=== PATIENT | female | born 1965 | race Caucasian/White ===

== ENCOUNTER → 2017-02-05 | Outpatient (CLI) | payer OTHER | LOC: FIMAGING 11:23 | PROVIDERS: ATTEND Obstetrics & Gynecology | DX: Z12.31 Encounter for screening mammogram for malignant neoplasm of breast (principal) | CPT/HCPCS: G0202 ==

== ENCOUNTER → 2018-02-26 | Outpatient (CLI) | payer OTHER | LOC: FIMAGING 11:59 | PROVIDERS: ATTEND Obstetrics & Gynecology | DX: Z12.31 Encounter for screening mammogram for malignant neoplasm of breast (principal) ==

== ENCOUNTER 2018-06-16 13:11 | Emergency (ER) | payer OTHER ==
--- NOTE | 2018-06-16 14:43 | EDPHY ---
General Time Seen by Provider: 06/16/18 14:43 Narrative: CLINICAL IMPRESSION: Headache, nausea. ASSESSMENT/PLAN: Patient is a 52 year old female with a history of seizure disorder who presents to the Emergency Department with sudden-onset posterior headache. Patient is afebrile and nontoxic appearing, mild distress on arrival. Her neurological exam is grossly normal with no focal deficit, NIH 0, negative test of skew and no gait or truncal ataxia. CT head, CTA head and neck all negative for acute intracranial process, aneurysm, hemorrhage or dissection. CBC revealed no evidence of leukocytosis or anemia, BMP grossly unremarkable. I considered the other potentially dangerous causes including meningitis, encephalitis, CVA/TIA and vertebral dissection however low clinical suspicion. I specifically considered a subarachnoid hemorrhage as possible etiology in light of sudden- onset headache however symptoms are less than 6 hr, CT/CTA head and neck were negative- I have low clinical suspicion at this time. Discussed LP with patient however she refuses and would prefer conservative management and follow up with her neurologist. There are no associated cranial nerve abnormalities and the patient has marked improvement with IV fluids, reglan, benadryl and toradol. Plan is to continue to treat the patient symptomatically and follow up with PCP after an outpatient trial. No indication for admission at this time. On re-examination and prior to discharge the patient's headache has markedly improved- near gone, she denies further nausea and her neurological examination is grossly normal. We discussed the importance of follow-up, she will schedule an appointment with her neurologist; patient does not have a PCP, she was provided a referral. Strict return precautions discussed- she will return immediately for worsening pain, visual changes, mental status changes, fever, vomiting or any other concerns. Patient verbalizes understanding and she is in agreement with this plan. DIFFERENTIAL DX: Headache including but not limited to subarachnoid hemorrhage, migraine headache , tension headache and infectious causes such as meningitis, pharyngitis and sinusitis. ED COURSE: 1500: Case discussed with Dr. Ceballos 1600: CT head and CTA head and neck negative for acute abnormality. On repeat examination the patient's neurological exam remained grossly normal with no focal deficit. Discussed LP for further evaluation of headache however patient refusing at this time. She prefers conservative management with pain control and follow up with her neurologist. 1648: On repeat exam the patient reports she is feeling so much better, feels ready to be discharged home. Her neurological exam remained grossly normal with no focal deficit. CHIEF COMPLAINT: Headache, dizzy, nausea HPI: Patient is a 52-year-old female who presents to the Emergency Department with sudden-onset posterior headache with brief period of lightheadedness and intermittent nausea. Patient reports that noon today she had a sudden onset headache located in the back of her head, radiates down her occiput. She has never experienced headaches like this before. At the time her headache came on , she felt like she saw black however denies any vision loss or loss of consciousness. Patient reports a very brief feeling of dizziness, resolved and has not recurred. She has had intermittent nausea since her headache started, her headache has been constant. She has not taken anything for pain. She has no history of migraines. Patient denies any fevers, chills, neck stiffness, recent URI, chest pain, shortness of breath or abdominal pain. She has had no vision changes, numbness or tingling of extremities, focal weakness or ataxia. Patient endorses last seizure approximately 2 and half years ago, no recent changes in medications. She saw her neurologist Dr. Rey several months ago with no concerns. PMH: Seizure disorder Family History: Denies Social History: Denies smoking or illicit drug use REVIEW OF SYSTEMS: All other systems negative Constitutional: No fever, no chills, appetite change. Eyes: No discharge, vision change ENT: No sore throat, congestion, ear pain. Cardiovascular: No chest pain, no palpitations. Respiratory: No cough, no shortness of breath. Gastrointestinal: Nausea. No abdominal pain, no vomiting, diarrhea. Genitourinary: No hematuria, dysuria, flank pain, pelvic pain Musculoskeletal: No back pain, joint swelling, joint pain, myalgias. Skin: No rashes, color change. Neurological: Headache, dizziness. PHYSICAL EXAM: General Appearance: Patient is well-developed, mildly uncomfortable appearing however not toxic-appearing. HENT: Normocephalic, atraumatic. Bilateral external ears are normal. Bilateral tympanic membranes are normal with pearly quigley reflex. Nares are clear, mucosa is pink. Oropharynx is clear, uvula is midline. There is no tonsillar enlargement or exudate. The dentition is normal. Eyes: PERRLA, EOMI intact. No acute vision change, no swelling, discharge, pain or photosensitivity. Conjunctiva pink, no pallor or injection Neck: Supple, nontender, no lymphadenopathy, no midline pain, FROM, no meningismus- negative Kernig, negative Brudzinski. Respiratory: There are no retractions, lungs are clear to auscultation. Cardiac: Regular rate and rhythm, no murmurs or gallops. Gastrointestinal: Abdomen is soft, nontender, bowel sounds normal, no masses/ hernia, no rigidity, guarding or focal peritoneal findings. Neurological: MENTAL STATUS: Patient is alert and oriented to person, place, time, and situation. Recent and remote memory are intact. Attention and concentration are normal. Found knowledge is appropriate to level of education. Mood and affect normal. SPEECH: Language including naming, repetition, comprehension, and spontaneous speech are normal. No dysarthria or dysphagia. CRANIAL NERVES: II: Visual fong are full to confrontation. Vision is grossly intact. III, IV, : Pupils are equal, round, reactive to light. Extraocular eye movements are full and without nystagmus. V: Facial sensation is intact to touch symmetrically in all 3 divisions. VII: Face is symmetric at rest with no asymmetry of grimace or evidence of facial weakness. VIII: Hearing is intact bilaterally to finger rub. IX, X: Palate is midline and elevates symmetrically with intact cough/gag. XI: Sternocleidomastoid and trapezius strength is normal. XII: Tongue protrudes midline without atrophy or fasciculations. MOTOR: Normal bulk and tone symmetrically in the upper and lower extremities. Upper extremities: shoulder abduction, elbow flexion, elbow extension, flexion of fingers and finger abduction strength 5/5 bilaterally. Lower extremities: hip flexion, knee flexion and extension, plantar and dorsiflexion of foot, and great toe extension strength 5/5 bilaterally. No pronator drift. SENSORY: Sensation is intact to light touch and symmetric in the UE's in LE's bilaterally. Romberg is negative. COORDINATION: Fine motor and rapid alternating movements are normal. Finger to nose is normal bilaterally. [id number] is normal bilaterally. No abnormal movements noted. There is no tremor at rest or with posture or action. GAIT/STATION: Casual, straightforward gait is normal. Patient can walk on toes and on heels. NIH is 0, negative test of skew, no truncal or gait ataxia. Skin: Warm, dry, no rashes, no nodules on palpation. Musculoskeletal: Extremities are symmetrical, full range of motion, no tenderness, deformity, swelling, or erythema. Psychiatric: Patient is oriented X 3, there is no agitation. MEDICAL DECISION MAKING: Patient was seen independently. Secondary supervising physician at time of evaluation was Dr. Ceballos, he did not evaluate this patient however case, results and plan of care were reviewed with him. Diagnosis: Headache, nausea. New, requires workup Summary: See Assessment and Plan for summary of ED visit Clinical lab tests: ordered / reviewed. Independent visualization of images, tracing, or specimens: Yes. Decision to obtain medical records or history from someone other than the patient: No Review / Summarize previous medical records: No Discussed patient with another provider: Yes, Dr. Ceballos Patient Progress: Stable, discharge. - Diagnostics Imaging Results: Imaging Impressions Head CT 06/16/18 15:06 Impression: Normal. Findings and recommendations discussed with KRISTOPHER Ramos at 3:52 PM hour, 06/16/2018. Final report concurs with initial preliminary interpretation. Head CTA 06/16/18 15:06 Impression: Normal. Findings and recommendations discussed with KRISTOPHER Ramos at 3:51 PM hour, 06/16/2018. Final report concurs with initial preliminary interpretation. Neck CTA 06/16/18 15:06 Impression: Normal. Note: All stenoses are calculated using NASCET Criteria. Findings and recommendations discussed with KRISTOPHER Ramos at 3:55 PM hour, 06/16/2018. Final report concurs with initial preliminary interpretation. - History Smoking Status: Never smoked - Objective Vital Signs: Initial Vital Signs Temperature (C) 36.6 C 06/16/18 13:16 Heart Rate 72 06/16/18 13:16 Respiratory Rate 18 06/16/18 13:16 Blood Pressure 148/98 H 06/16/18 13:16 O2 Sat (%) 98 06/16/18 13:16 O2 Delivery Mode Room Air Allergies/Adverse Reactions: divalproex sodium [From Depakote] Allergy (Verified 06/16/18 13:15) phenytoin [From Dilantin] Allergy (Verified 06/16/18 13:16) Home Medications: Medication Instructions Recorded Zonegran 06/16/18 Laboratory Results: Laboratory Results 06/16/18 13:50 06/16/18 13:50 06/16/18 06/16/18 06/16/18 15:11 13:50 13:50 WBC 7.35 10^3/uL 10^3/uL (3.80-9.50) RBC 4.50 10^6/uL 10^6/uL (4.18-5.33) Hgb 14.1 g/dL g/dL (12.6-16.3) POC Hgb 15.0 gm/dL gm/dL (12.6-16.3) Hct 43.2 % % (38.0-47.0) POC Hct 44 % % (38-47) MCV 96.0 fL fL (81.5-99.8) MCH 31.3 pg pg (27.9-34.1) MCHC 32.6 g/dL g/dL (32.4-36.7) RDW 12.8 % % (11.5-15.2) Plt Count 197 10^3/uL 10^3/uL (150-400) MPV 11.9 fL H fL (8.7-11.7) Neut % (Auto) 58.6 % % (39.3-74.2) Lymph % (Auto) 29.9 % % (15.0-45.0) Darke % (Auto) 10.1 % % (4.5-13.0) Eos % (Auto) 0.5 % L % (0.6-7.6) Baso % (Auto) 0.4 % % (0.3-1.7) Nucleat RBC Rel Count 0.0 % % (0.0-0.2) Absolute Neuts (auto) 4.30 10^3/uL 10^3/uL (1.70-6.50) Absolute Lymphs (auto) 2.20 10^3/uL 10^3/uL (1.00-3.00) Absolute Monos (auto) 0.74 10^3/uL 10^3/uL (0.30-0.80) Absolute Eos (auto) 0.04 10^3/uL 10^3/uL (0.03-0.40) Absolute Basos (auto) 0.03 10^3/uL 10^3/uL (0.02-0.10) Absolute Nucleated RBC 0.00 10^3/uL 10^3/uL (0-0.01) Immature Gran % 0.5 % % (0.0-1.1) Immature Gran # 0.04 10^3/uL 10^3/uL (0.00-0.10) POC Sodium 143 mEq/L mEq/L (135-145) Sodium 139 mEq/L mEq/L (135-145) POC Potassium 4.2 mEq/L mEq/L (3.3-5.0) Potassium 4.3 mEq/L mEq/L (3.5-5.2) POC Chloride 107 mEq/L mEq/L (97-110) Chloride 110 mEq/L mEq/L (97-110) Carbon Dioxide 21 mEq/l L mEq/l (22-31) Anion Gap 8 mEq/L mEq/L (6-14) POC BUN 15 mg/dL mg/dL (7-23) BUN 15 mg/dL mg/dL (7-23) Creatinine 0.9 mg/dL mg/dL (0.6-1.0) POC Creatinine 0.8 mg/dL mg/dL (0.6-1.0) Estimated GFR > 60 Glucose 96 mg/dL mg/dL (70-100) POC Glucose 90 mg/dL mg/dL (70-100) Calcium 9.6 mg/dL mg/dL (8.5-10.4) Medications Given: Discontinued Medications Diphenhydramine HCl (Benadryl Injection) 25 mg IVP EDNOW ONE Stop: 06/16/18 16:03 Last Admin: 06/16/18 16:16 Dose: 25 mg Hydromorphone HCl (Dilaudid) 0.5 mg IVP EDNOW ONE Stop: 06/16/18 15:08 Last Admin: 06/16/18 15:12 Dose: 0.5 mg Sodium Chloride (Ns) 1,000 mls @ 0 mls/hr IV ONCE ONE PRN Reason: Wide Open Stop: 06/16/18 14:53 Last Admin: 06/16/18 15:00 Dose: 1,000 mls Ketorolac Tromethamine (Toradol) 30 mg IVP EDNOW ONE Stop: 06/16/18 16:03 Last Admin: 06/16/18 16:19 Dose: 30 mg Metoclopramide HCl (Reglan Injection) 10 mg IVP EDNOW ONE Stop: 06/16/18 16:03 Last Admin: 06/16/18 16:17 Dose: 10 mg Ondansetron HCl (Zofran) 4 mg IVP Q4 PRN PRN Reason: Nausea/Vomiting, Can't Take PO Stop: 12/13/18 14:51 Last Admin: 06/16/18 15:00 Dose: 4 mg Point of Care Test Results: Chemistry 06/16/18 15:11 POC Sodium 143 mEq/L mEq/L (135-145) POC Potassium 4.2 mEq/L mEq/L (3.3-5.0) POC Chloride 107 mEq/L mEq/L (97-110) POC BUN 15 mg/dL mg/dL (7-23) POC Creatinine 0.8 mg/dL mg/dL (0.6-1.0) POC Glucose 90 mg/dL mg/dL (70-100) ISTAT H&H 06/16/18 15:11 POC Hgb 15.0 gm/dL gm/dL (12.6-16.3) POC Hct 44 % % (38-47) Departure - Departure Disposition: Home, Routine, Self-Care Clinical Impression: Headache Qualifiers: Headache type: unspecified Headache chronicity pattern: acute headache Intractability: not intractable Qualified Code(s): R51 - Headache Condition: Good Instructions: Acute Headache (ED) Additional Instructions: DISCHARGE INSTRUCTIONS FROM YOUR DOCTOR Thank you for visiting our emergency department today. Please keep in mind that discharge from the emergency department does not mean that there is nothing wrong - it simply means that we have not identified an emergency condition that requires further evaluation or treatment in the hospital. You should always plan to follow up with primary care for re-evaluation of your condition in the next 2-3 days; please establish care, I provided a referral to you. If you have been referred to a specialist, please call as soon as possible ( today or tomorrow) to schedule your follow up appointment at the appropriate time; please call your neurologist to schedule follow-up appointment for repeat examination. The exact cause of your headache was not identified. The tests we have performed are essentially normal. Serious causes of headache are still possible , therefore, you should return immediately for worsening pain, visual changes, mental status changes, fever, vomiting or any other concerns. If the pain persists tomorrow, you should return for a recheck. In addition, you should follow up with your doctor for a recheck in 2-3 days. For pain control: You may take Tylenol, I recommend 500-1000 mg every 6-8 hours as needed. Take with food and a full glass of water. Stop taking if this is upsetting her stomach. Do not exceed 4000 mg in a 24 hr period. You may also take ibuprofen, recommend 400 mg every 6 hr. Take with food and a full glass of water. Stop taking if this upsets her stomach. Do not exceed 2400 mg in a 24 hr period. You received Toradol in the emergency department, please do not take any NSAIDs including Motrin, ibuprofen or Aleve for at least 8 hr after leaving the emergency department. People present with illnesses and injuries in different ways, and it is always possible that we have missed something. You may always return for re-evaluation if symptoms worsen or if they are not improving or if you develop new/different symptoms. Again, thank you for choosing our emergency department. We hope that you feel better. Referrals: Clare Soriano MD [Medical Doctor] - 2-3 days, call for appt. (Please establish care with a primary care provider)
[2018-06-16] MEDS ORDERED: NS 1,000 ML IV ONE (14:52)
[2018-06-16] MEDS ORDERED: ONDANSETRON 4 MG/2 ML VIAL IVP PRN (14:52)
[2018-06-16] MEDS ORDERED: HYDROmorphONE/DILAUDID 2 MG/ML INJ IVP ONE (15:07)
[2018-06-16 15:13] LABS: PLATELET COUNT 197 10^3/uL (150-400)
[2018-06-16] MEDS ORDERED: IOHEXOL 350mgI/ML (OMNIPAQUE) 150 ML BTL IV ONE (15:18)
[2018-06-16] MEDS ORDERED: KETOROLAC 30 MG/1 ML SDV IVP ONE (16:02)
[2018-06-16] MEDS ORDERED: METOCLOPRAMIDE 10 MG/2 ML VIAL IVP ONE (16:02)
[2018-06-16 17:01] VITALS: BP 94/69
== END 2018-06-16 17:00 | disposition home or self-care (01) ==
DX: R51 Headache (principal); R11.0 Nausea; R42 Dizziness and giddiness
CPT/HCPCS: 82435-PO; 82565-PO; 82947-PO; 84132-PO; 84295-PO; 84520-PO; 85014-ER; 96374; J1170; J1200; J1885; J2405; J2765; Q9967